=== PATIENT | male | born 1980 | race Caucasian/White ===

== ENCOUNTER → 2025-05-28 12:43 | Outpatient (BNVA) | payer SELFPAY | PROVIDERS: Visit Provider Physician Assistant | DX: S62.514A Nondisplaced fracture of proximal phalanx of right thumb, initial encounter for closed fracture (principal); X50.3XXA Overexertion from repetitive movements, initial encounter; T84.298A Other mechanical complication of internal fixation device of other bones, initial encounter | CPT/HCPCS: 29125; 73140; 99204 ==